=== PATIENT | female | born 1950 | race Caucasian/White ===

== ENCOUNTER → 2017-06-10 | Outpatient (CLI) | payer OTHER ==
[~2017-06-10] MED LIST: ACTONEL5 MG PO; ASPIR 8181 MG PO; BENICAR HCT 201 EACH PO; BENICAR20 MG PO; DIATRIZOATE MEGL/DIATRIZOA SOD 30 ML BTL PO ONE; HYDROCHLOROTH12.5 M1; IOPAMIDOL 370 MG/ML 200 ML INFUS..BTL INJ ONE; LEVAQUIN500 MG PO; METRONIDAZOLE250 MG PO; SODIUM CHLORIDE 0.9% 50ML 50 ML ONE; VITAMIN D1000 UNIT PO; fish oil PO
[2017-06-10 15:04] LABS: BLOOD UREA NITROGEN 14 mg/dL (7-26); BUN/CREATININE RATIO 19 (6-25); CREATININE, SERUM 0.75 mg/dL (0.57-1.11); EST GLOMERULAR FILTRATION RATE > 60 ML/MIN (60-)
--- NOTE | 2017-06-10 16:01 | Diagnostic Imaging Report ---
EXAM: CT Abdomen and Pelvis WITH contrast INDICATION: Lower abdominal pain. Prior diverticulitis. COMPARISON: CT abdomen pelvis dated 04/29/16. MRI abdomen dated 04/30/2016. TECHNIQUE: Abdomen and pelvis were scanned utilizing a multidetector helical scanner from the lung base to the pubic symphysis after administration of IV contrast. Coronal and sagittal reformations were obtained. Routine protocol was performed. Scan was performed when during portal venous phase. IV CONTRAST: 100 cc [id number]. ORAL CONTRAST: Gastrografin water mixture. RADIATION DOSE: Total DLP: 520.36 mGy*cm Estimated effective dose: (DLP x 0.015 x size factor) mSv COMPLICATIONS: None FINDINGS: LINES and TUBES: None. LOWER THORAX: Unremarkable HEPATOBILIARY: No focal hepatic lesions. No biliary ductal dilation. GALLBLADDER: No radio-opaque stones or sludge. No wall thickening. SPLEEN: No splenomegaly. PANCREAS: No focal masses or ductal dilatation. ADRENALS: Bilateral adrenal nodules again observed, the largest on the left measuring 2.1 cm on image 23 series 2, particularly characterized as a adenomata. KIDNEYS/URETERS: Kidneys enhance symmetrically. No hydronephrosis. 0.8 cm low-attenuation lesion in the posterior upper pole of the right kidney is stable. No stones. GI TRACT: No bowel dilatation to suggest obstruction. Diverticulosis predominantly involving the sigmoid colon again observed. Interval resolution of previously present acute diverticulitis. There is however mild fat stranding surrounding diverticula in the distal sigmoid colon in the posterior right aspect of the pelvis best seen on images 65 series 2 which is new since the previous examination. Minimal wall thickening of the rectum on image 67 series 2 is likely related to underdistention. Appendix is normal. PELVIC ORGANS/BLADDER: Unremarkable. LYMPH NODES: No lymphadenopathy. VESSELS: Mild atherosclerotic calcifications of the abdominal aorta and iliac arteries without aneurysmal dilatation. PERITONEUM / RETROPERITONEUM: No free air or fluid. BONES: No acute osseous abnormality. Mild generalized osteopenia. SOFT TISSUES: Unremarkable. IMPRESSION: 1. Findings suggestive of new mild sigmoid diverticulitis. No abscess formation. 2. Stable bilateral adrenal adenomata. Signed by: Dr. Kali Mcdonald M.D. on 06/10/2017 3:57 PM
== END ==
LOC: CT 14:00
PROVIDERS: ATTEND Internal Medicine Gastroenterology
DX: R10.30 Lower abdominal pain, unspecified (principal); K57.92 Diverticulitis of intestine, part unspecified, without perforation or abscess without bleeding
CPT/HCPCS: 36415; 74177; 82565; 84520; Q9967